=== PATIENT | female | born 1945 | race Caucasian/White ===

== ENCOUNTER 2022-02-10 08:00 | Outpatient (CLI) | payer OTHER | END 2022-02-10 23:59 | disposition home or self-care (01) | LOC: LAB.S 08:00 | PROVIDERS: ATTEND Physician Assistant | DX: R30.0 Dysuria (principal) | CPT/HCPCS: 87086; 87181 ==

== ENCOUNTER 2022-09-21 08:00 | Outpatient (CLI) | payer OTHER | END 2022-09-21 23:59 | disposition home or self-care (01) | LOC: LAB.S 08:00 | PROVIDERS: ATTEND Physician Assistant | DX: R30.0 Dysuria (principal) | CPT/HCPCS: 87077; 87086; 87181 ==